=== PATIENT | female | born 1950 | race Hispanic/Latino ===

== ENCOUNTER 2017-10-31 05:45 | Day surgery (SDC) | payer MEDICARE, OTHER ==
[~2017-10-31] VITALS: Ht 170.2 cm; Wt 107.5 kg
[~2017-10-31 05:45] MED LIST: ADULT LOW DOSE81 MG PO; CALCIUM600 MG PO; CELEXA20 MG PO; CLOBETASOL PROP15 GM TOP; COREG6.25 MG PO; DETROL1 MG PO; FOLIC ACID1 MG PO; HYDROXYZINE HCL25 MG PO; LANTUS SOL100 UNIT/1 SUB-Q; LIPITOR40 MG PO; LISINOPRIL20 MG PO; METHOTREXATE2.5 MG PO; NITROLINGUAL4.9 GM SL; NOVOLOG FL100 UNIT/1 SUB-Q; OMEPRAZOLE20 MG PO; ONDANSETRON ODT8 MG PO; PROAIR HFA8.5 GM INH; VITAMIN D50000 UNI1 PO; ZOFRAN ODT8 MG PO
--- NOTE | 2017-10-31 08:27 | NUR ---
10/31/17 0827 Eliel Rodriguez 0751: PT ARRIVED FROM ENDO ROOM. O2 VIA MASK AT 6 L. PT SLEEPING. 0800: 02 MAS REMOVED PT IS 100% AND WAKING.
--- NOTE | 2017-11-09 08:29 | OR ---
[facility] [address], [place] [address] Signed DATE OF OPERATION: 10/31/2017 SURGEON: Anish Montanez MD PREOPERATIVE DIAGNOSES: 1. Low anterior resection for rectal cancer in July 2014. 2. Diverticulosis. 3. Internal hemorrhoids. 4. Colorectal anastomosis at 6 cm. POSTOPERATIVE DIAGNOSES: 1. Minimal left-sided diverticulosis. 2. Colorectal anastomosis 6 cm. 3. Internal hemorrhoids. PROCEDURE: Colonoscopy with cold biopsy of the anastomosis. ESTIMATED BLOOD LOSS: Minimal. INDICATIONS: Lucretia is a 67-year-old female, who was diagnosed with an upper rectal cancer [place] [address] Victoria. She underwent her neoadjuvant chemo and radiation therapy. She then had her low anterior resection with Dr. Da Silva in July 2014 with a protecting loop ileostomy. On rectal ultrasound, she had a T3 N1 lesion. There was no residual disease in the rectum or the lymph nodes after the surgery. She finished up her adjuvant chemotherapy after the surgery. She had her loop ileostomy reversed with Dr. Da Silva in May 2015. I did a colonoscopy for her in July of 2016. At that time, she had minimal sigmoid diverticulosis with moderate internal hemorrhoids. She has an end-to-end EEA stapled anastomosis at 6 cm from the anal verge. Currently, she has her left Iuth-P-Bvkjffwp in place and she now has a hernia in the right lower quadrant at the ileostomy site. In the office, I explained to Lucretia we would do her colonoscopy first and if anything was fine, we can repair the ventral hernia for her later and remove the Kdgq-P-Zvqlrzrj at the same setting. We are also making attempts to track down her Oncology records from the [facility]. In the meantime, Lucretia uses Calmoseptine cream around the anus with good results. In the office, I gave her a pamphlet on colonoscopy, of course she is aware of that. We did review the written instructions for her bowel prep. In addition, Lucretia is an obese lady with a large full neck with daily need for narcotics and citalopram. Given her ASA class 4, we asked that Electronically Signed By: ANISH MONTANEZ MD 11/09/17 0829 PATIENT NAME: LUCRETIA ROJAS OPERATIVE REPORT DATE OF : 46 REPORT #: [id number] PHYSICIAN: ANISH MONTANEZ MD PCP: SUSANA VALENTINE MD REPORT IS CONFIDENTIAL AND NOT TO BE RELEASED WITHOUT AUTHORIZATION [facility] [address], [place] [address] Signed an anesthesia provider help us on the last time and on this occasion as well to help manage the airway and give her propofol. She had expressed understanding and wished to proceed. She told me in the meantime, her bowel movements are good and she has no family history of colon cancer or polyps. PROCEDURE NOTE: Lucretia was taken into our endoscopy suite and placed in the left lateral decubitus position. She was given IV sedation with propofol per our nurse cartridge filler. A digital rectal exam was performed and I can feel the anastomosis with the tip of my index finger. I suspect this is a 28 mm stapled anastomosis, as it was just large enough to have a tip on my index finger. After this, the adult colonoscope was introduced and I can see the circumferential staple line that looks quite healthy, has a little chronic inflammation as was common. I was able to pass the adult colonoscope through there through the anastomosis and all the way up into the cecum without difficulty. Her prep was good. The scope was then slowly withdrawn. She does have some diverticula in that left colon. They were moderate in size, minimal to moderate in number, and scattered about. Again, the anastomosis was readily evident and I can see the kavitha at 6 cm from the anal verge. We went ahead and took several biopsies along the anastomosis for pathologic review, although it looks healthy. The distal portion of the rectum was healthy. We can see there was not enough room to retroflex the scope. We could see some internal hemorrhoids as we withdrew the colonoscope. After this, the gas was suctioned out and the colonoscope removed. Lucretia tolerated the procedure quite well. RECOMMENDATIONS: I will see Lucretia back in my office in 7 to 14 days to review her results. We will also have to go back and review some of her records. She still needs to have the right lower quadrant ventral hernia repaired and have her Cvzs-N-Eqfmcdvo removed. Anish Montanez MD ALB/MODL /[id number] cc: MD Kamran Lanza MD Electronically Signed By: ANISH MONTANEZ MD 11/09/17 0829 PATIENT NAME: LUCRETIA ROJAS OPERATIVE REPORT DATE OF : 46 REPORT #: [id number] PHYSICIAN: ANISH MONTANEZ MD PCP: SUSANA VALENTINE MD REPORT IS CONFIDENTIAL AND NOT TO BE RELEASED WITHOUT AUTHORIZATION [facility] [address] [place], [place] [address] S[address] MAGUI [address] Dr[address] Luay Ailabouni Copies: ANISH MONTANEZ MD, SAAD MD THOMPSON, NICOLETTE LEE PA MACRANDER, MARIETTE A MD ~ Electronically Signed By: ANISH MONTANEZ MD 11/09/17 0829 PATIENT NAME: LUCRETIA ROJASARITA OPERATIVE REPORT DATE OF : 46 REPORT #: [id number] PHYSICIAN: ANISH MONTANEZ MD PCP: SUSANA VALENTINE MD REPORT IS CONFIDENTIAL AND NOT TO BE RELEASED WITHOUT AUTHORIZATION
== END 2017-10-31 08:40 | disposition home or self-care (01) ==
LOC: OPS 05:45 → DS 06:45 → OPS 08:40
PROVIDERS: Colon & Rectal Surgery
PROC: 0DBP8ZX Excision of Rectum, Via Natural or Artificial Opening Endoscopic, Diagnostic (ICD-10-PCS; principal; 2017-10-31 06:45)
DX: Z12.11 Encounter for screening for malignant neoplasm of colon (principal); K51.20 Ulcerative (chronic) proctitis without complications; K62.89 Other specified diseases of anus and rectum; I25.10 Atherosclerotic heart disease of native coronary artery without angina pectoris; K57.30 Diverticulosis of large intestine without perforation or abscess without bleeding; K64.8 Other hemorrhoids; K63.89 Other specified diseases of intestine; I13.0 Hypertensive heart and chronic kidney disease with heart failure and stage 1 through stage 4 chronic kidney disease, or unspecified chronic kidney disease; I50.30 Unspecified diastolic (congestive) heart failure; E11.22 Type 2 diabetes mellitus with diabetic chronic kidney disease; N18.9 Chronic kidney disease, unspecified; D63.1 Anemia in chronic kidney disease; F32.9 Major depressive disorder, single episode, unspecified; F41.9 Anxiety disorder, unspecified; M06.9 Rheumatoid arthritis, unspecified; E78.00 Pure hypercholesterolemia, unspecified; G47.30 Sleep apnea, unspecified; J18.9 Pneumonia, unspecified organism; F17.210 Nicotine dependence, cigarettes, uncomplicated; Z85.038 Personal history of other malignant neoplasm of large intestine; Z79.4 Long term (current) use of insulin; Z79.82 Long term (current) use of aspirin; Z79.899 Other long term (current) drug therapy; Z99.89 Dependence on other enabling machines and devices; Z95.5 Presence of coronary angioplasty implant and graft; Z92.3 Personal history of irradiation; Z92.21 Personal history of antineoplastic chemotherapy
CPT/HCPCS: 88305; J2250; J2370; J2704; J3010; J7120

== ENCOUNTER 2017-12-07 06:45 | Day surgery (SDC) | payer MEDICARE, OTHER ==
[~2017-12-07] VITALS: Ht 170.2 cm; Wt 111.1 kg
--- NOTE | 2017-12-07 10:59 | NUR ---
12/07/17 Devorah Jason 1053 PT ARRIVED TO PACU WITH ORAL AIRWAY IN PLACE ON 6L VIA MASK. PT RESPONDS TO STIMULI AND FOLLOW COMMANDS, THEN BACK TO SLEEP. VSS. RESP EVEN AND UNLABORED.
--- NOTE | 2017-12-07 11:55 | NUR ---
[id number]: PT ARRIVES TO DS RM 4 WITH EYES CLOSED, RESTING QUIETLY IN BED. RESPIRATIONS EVEN AND UNLABORED. PT OPENS EYES ON COMMAND AND ANSWERS QUESTIONS. PT DENIES ANY PAIN OR NAUSEA AT THIS TIME. PT PROVIDED WATER AND CRACKERS. CALL LIGHT AT PT LEFT SIDE.
[2017-12-07] MEDS ORDERED: NORCO 10-325 T1 EACH PO (12:11)
--- NOTE | 2017-12-07 12:47 | OR ---
[facility] [address], [place] [address] Signed DATE OF OPERATION: 12/07/2017 SURGEON: Anish Montanez MD PREOPERATIVE DIAGNOSES: 1. Incarcerated right lower quadrant ileostomy site ventral incisional hernia (3 cm). 2. Left-sided subclavian Midf-V-Aisxkvtv. POSTOPERATIVE DIAGNOSES: 1. Incarcerated right lower quadrant ileostomy site ventral incisional hernia (3 cm). 2. Left-sided subclavian Becj-R-Wmniduge. PROCEDURES: 1. Right lower quadrant ileostomy site ventral incisional herniorrhaphy with intraabdominal Ventralex mesh (8 cm). 2. Removal of left subclavian Kxsc-G-Yxmtmkmu. ESTIMATED BLOOD LOSS: None. INDICATIONS: Lucretia is a 67-year-old obese diabetic female, who was diagnosed with rectal cancer back in 2013. She underwent a low anterior resection with a protecting loop ileostomy in the right lower quadrant. Later, the ileostomy was reversed. Unfortunately, she has developed an incarcerated hernia through the ileostomy site. In addition, she still has a Rxjp-X-Ezxgzmgt in the left subclavian position. She had been referred to my office with respect to those 2 issues. I had met with Lucretia in the office and we actually took her for colonoscopy, which turned out fine. No evidence of any recurrent cancer. I also gave her a booklet on hernias and we looked at those together. We discussed the nature of her ileostomy site hernia and the difference between a primary suture repair and a mesh repair. She also wanted me to remove her Fvzy-Q-Fyxxrvxm. Apparently, her phone number is changed and she has not notified her previous physicians. We have encouraged her several times now including the family today to call her previous physicians and let them know her new phone number, so she can have ongoing followup for her cancer. I had spoke with Lucretia and explained her the nature of her surgeries. She understands the expected intraop and postop course. There is risk of surgery including, but not limited to bleeding, infection, scarring, change in contour of the skin, damage to bowel, infection of mesh requiring removal, recurrent hernias and chronic pain along with catheter fracture with embolization as well as air embolization and scarring and change in contour of the skin on her chest wall. She had expressed understanding and Electronically Signed By: ANISH MONTANEZ MD 12/07/17 1247 PATIENT NAME: LUCRETIA ROJAS OPERATIVE REPORT DATE OF : 46 REPORT #: [id number] PHYSICIAN: ANISH MONTANEZ MD PCP: SUSANA VALENTINE MD REPORT IS CONFIDENTIAL AND NOT TO BE RELEASED WITHOUT AUTHORIZATION [facility] [address], [place] [address] Signed wished to proceed. PROCEDURE NOTE: I met with Lucretia and her family in our preop area. With our nurse in the room, we marked both areas appropriately. She was then taken into the operating room and placed in the supine position under general endotracheal tube anesthesia. She was given preoperative antibiotics along with subcutaneous heparin. SCDs were utilized. Rodriguez catheter was inserted with return of clear yellow urine. She was then prepped and draped in the usual sterile fashion. We approached the right lower quadrant 1st. We utilized her previous transverse incision and opened that sharply with our #15 blade knife. We went down around the hernia sac bluntly and with the cautery. The entire hernia sac was excised from the abdominal wall. We took down the adhesions inside the hernia sac and she still had bowel adherent to the rim of the fascial defect. Unfortunately, those adhesions also extended back about 3-4 cm everywhere, but superior portion of that wound. So it took some additional time to take down those adhesions until the bowel was free. The fascial defect was about 3 cm, which is common for an ileostomy site. We therefore used our round Ventralex mesh and we placed it inside the abdomen, brought it up, flushed against the posterior abdominal wall. The fascial defect was then closed transversely with a running #1 Prolene suture. Several passes of the suture went through the tab on the mesh to help hold it in place and keep it centered. The tab was then cut flush with the fascia. Local anesthetic was then copiously injected in the abdominal wall as well as subcutaneous tissues. The wound was irrigated and suctioned out until clear. The subcutaneous tissues were gently reapproximated with interrupted 3-0 Monocryl suture along with the dermis. The skin was then reapproximated with a running 6-0 fast absorbing plain gut suture. Dry gauze and tape were then applied. After this, the entire field was taken down. I went out and completely scrubbed and re-gowned. We then prepped and draped her left chest wall. Her previous incision was opened with a #15 blade knife over the Ljvz-L-Leiezswu hub. We went down around the Mudy-Z-Sshohupt and placed a pursestring 2-0 Prolene suture around the sheath as the catheter traveled underneath the clavicle. The entire catheter was removed without any resistance whatsoever. The catheter was about 27 cm in length consistent with its position on her chest wall. A pursestring suture was tied down to close the pseudocapsule around the catheter. Therefore, no air embolization or backbleeding was noted. After this, the hub was removed from the chest wall and the entire Tbxv-U-Otvfrysj was passed off the field. Local anesthetic was injected into the chest wall and the chest wall was irrigated and suctioned out until clear. A 3-0 Monocryl suture was used to reapproximate the dermis and the skin edges were reapproximated with a running 6-0 fast absorbing plain gut suture. Dry gauze and tape were then applied. After this, Lucretia was awakened from her anesthesia, extubated in the OR, and taken to recovery room in stable condition. Electronically Signed By: ANISH MONTANEZ MD 12/07/17 1247 PATIENT NAME: LUCRETIA ROJAS OPERATIVE REPORT DATE OF : 46 REPORT #: [id number] PHYSICIAN: ANISH MONTANEZ MD PCP: SUSANA VALENTINE MD REPORT IS CONFIDENTIAL AND NOT TO BE RELEASED WITHOUT AUTHORIZATION [address] [address] Signed Anish Montanez MD ALB/MODL /[id number] cc: MD Dorothy Us MD Dr. Luay Ailabouni Mariette A Macrander, MD Andrew L Bower, MD Copies: ELLIS QUIROZ SAAD MD HAQUE, BASIR MD MACRANDER, MARIETTE A MD BOWER, ANDREW L MD ~ Electronically Signed By: ANISH MONTANEZ MD 12/07/17 1247 PATIENT NAME: LUCRETIA ROJAS OPERATIVE REPORT DATE OF : 46 REPORT #: [id number] PHYSICIAN: ANISH MONTANEZ MD PCP: SUSANA VALENTINE MD REPORT IS CONFIDENTIAL AND NOT TO BE RELEASED WITHOUT AUTHORIZATION
--- NOTE | 2017-12-07 13:56 | NUR ---
PT RESTING IN BED WITH EYES CLOSED AND RESPIRATIONS EVEN, UNLABORED. PT IS EASILY AROUSED BY VOICE AND ABLE TO ANSWER QUESTIONS. PT DENIES PAIN AT THIS TIME. SHANON ALDAMION REMAINS ON WARM WITH CALL LIGHT AT PT LEFT SIDE. PT FAMILY REMAINS IN HALLWAY. FELIPE EMPTIED OF 350MLS DILUTE YELLOW URINE.
--- NOTE | 2017-12-07 15:11 | NUR ---
[id number]: PT AWAKE AND ALERT. PT STATES RLQ IS PAINFUL AND RATES PAIN A 7/10. PT GIVEN PAIN MEDICATION AFTER EATING CRACKER. FELIPE BALLOON EMPTIED OF 9MLS NS. FELIPE DC'D WNL, PT TOLERATES WELL. PT AMBULATES TO WITH RN ASSIST. PT ABLE TO VOID 100 MLS CLEAR YELLOW URINE. PT BACK IN BED AND PROVIDED FRESH ICE BAG, WATER, AND SOUP. PT CALL LIGHT AT PT LEFT SIDE W/IN REACH. PT ALSO GIVEN CELL PHONE PER PT REQUEST.
--- NOTE | 2017-12-07 15:43 | NUR ---
PT TOLERATES SOUP WELL WITH NO C/O NAUSEA. PT REQUESTS COFFEE WITH CREAMER. FAMILY BACK IN ROOM AT BEDSIDE.
--- NOTE | 2017-12-07 16:13 | NUR ---
DC CRITERIA MET, PT AGREES SHE IS READY TO GO HOME. IV DC'D. DC INSTRUCTIONS GIVEN IN THE PRESENCE OF PT AND FAMILY AT BEDSIDE. PAIN SCRIPT GIVEN TO PT. ALL QUESTIONS ANSWERED, AND PT VERBALIZES AN UNDERSTANDING OF DC INSTRUCTIONS.
--- NOTE | 2017-12-07 16:49 | NUR ---
PT DC'S FROM DS UNIT RM 4 VIA WHEELCHAIR WITH FAMILY. DAUGHTER AT FRONT DOOR WITH PERSONAL VEHICLE TO DRIVE PT HOME.
== END 2017-12-07 16:30 | disposition home or self-care (01) ==
LOC: DS 06:45
PROVIDERS: Colon & Rectal Surgery
PROC: 0WUF0JZ Supplement Abdominal Wall with Synthetic Substitute, Open Approach (ICD-10-PCS; principal; 2017-12-07 08:15)
PROC: 0JPT0WZ Removal of Totally Implantable Vascular Access Device from Trunk Subcutaneous Tissue and Fascia, Open Approach (ICD-10-PCS; 2017-12-07 08:15)
DX: K43.0 Incisional hernia with obstruction, without gangrene (principal); I25.10 Atherosclerotic heart disease of native coronary artery without angina pectoris; E11.22 Type 2 diabetes mellitus with diabetic chronic kidney disease; I13.0 Hypertensive heart and chronic kidney disease with heart failure and stage 1 through stage 4 chronic kidney disease, or unspecified chronic kidney disease; I50.30 Unspecified diastolic (congestive) heart failure; N18.9 Chronic kidney disease, unspecified; D63.1 Anemia in chronic kidney disease; M06.9 Rheumatoid arthritis, unspecified; E78.00 Pure hypercholesterolemia, unspecified; F41.9 Anxiety disorder, unspecified; F32.9 Major depressive disorder, single episode, unspecified; F17.210 Nicotine dependence, cigarettes, uncomplicated; Z85.038 Personal history of other malignant neoplasm of large intestine; Z45.2 Encounter for adjustment and management of vascular access device; Z95.5 Presence of coronary angioplasty implant and graft; Z90.49 Acquired absence of other specified parts of digestive tract; Z79.4 Long term (current) use of insulin; Z79.82 Long term (current) use of aspirin; Z79.899 Other long term (current) drug therapy
CPT/HCPCS: 00752; C1781; J0690; J1644; J1885; J2250; J2405; J2704; J2765; J3010; J7120